=== PATIENT | male | born 1965 | race Hispanic/Latino ===

== ENCOUNTER → 2020-05-13 | Outpatient (CLI) | payer OTHER | END | disposition home or self-care (01) | LOC: SHCH 14:27 | PROVIDERS: ATTEND Internal Medicine Cardiovascular Disease | DX: I10 Essential (primary) hypertension (principal); I25.2 Old myocardial infarction | CPT/HCPCS: 93306; 93356 ==

== ENCOUNTER → 2020-05-16 | Outpatient (CLI) | payer OTHER ==
[2020-05-16] MEDS: REGADENOSON 0.4 MG/5 ML PF SYG IVP SCH (12:29)
== END | disposition home or self-care (01) ==
LOC: SHCH 08:29
PROVIDERS: ATTEND Internal Medicine Cardiovascular Disease
DX: I10 Essential (primary) hypertension (principal); I25.2 Old myocardial infarction
CPT/HCPCS: 78452; 93017; 96374; A9500 ×2; J2785